=== PATIENT | female | born 1980 | race Caucasian/White ===

== ENCOUNTER → 2016-09-10 | Outpatient (CLI) | payer BC ==
--- NOTE | 2016-09-10 15:23 | KCIC ---
PROCEDURE Pelvic ultrasound. HISTORY Uterine bleeding times 34 days. TECHNIQUE Real-time ultrasound imaging of the pelvis using transabdominal window is performed. COMPARISON None. FINDINGS Uterus measures 14.4 x 6.8 x 8.2 cm. No focal abnormality. The endometrial stripe measures 10 millimeters, normal. There is normal blood flow in both ovaries. The right ovary measures 8 x 5.6 x 6 cm. There is a functional cyst measuring 6.8 x 4.7 x 4.8 cm. A few internal echoes may indicate a component of hemorrhage. The left ovary measures 9.3 x 5.6 x 7.5 cm. There is a complex septated cyst of the left ovary measuring 7.7 x 5.1 x 5.8 cm. No cul-de-sac free fluid is identified. IMPRESSION 1. The endometrial stripe is not abnormally thickened. 2. There is a moderate sized right ovary functional cyst. 3. There is a complex septated cyst of the left ovary that may be a hemorrhagic cyst. Suggest ultrasound follow up in 6-12 weeks to assess for resolution. Electronically signed by: Kennedy Contreras MD (Sep 10, 2016 15:22:20)
== END | disposition home or self-care (01) ==
LOC: KCIC US 12:14
PROVIDERS: ATTEND Nurse Practitioner Family
DX: N93.9 Abnormal uterine and vaginal bleeding, unspecified (principal)
CPT/HCPCS: 76856